=== PATIENT | male | born 1970 ===

== ENCOUNTER 2021-07-30 08:00 | Outpatient (CLI) | payer OTHER | END 2021-07-30 08:30 | disposition home or self-care (01) | LOC: PPH VACUNA 08:00 | DX: Z23 Encounter for immunization (principal) ==

== ENCOUNTER 2022-02-26 08:00 | Outpatient (CLI) | payer OTHER | END 2022-02-26 08:30 | disposition home or self-care (01) | LOC: PPH VACUNA 08:00 | PROVIDERS: ATTEND Emergency Medicine Pediatric Emergency Medicine | DX: Z23 Encounter for immunization (principal) ==